=== PATIENT | female | born 1955 | race Caucasian/White ===

== ENCOUNTER 2018-08-11 06:30 | Emergency (ER) | payer OTHER ==
[2018-08-11] MEDS ORDERED: MORPHINE 4 MG/ML SYR ONE ×2 (07:12→08:23)
[2018-08-11] MEDS ORDERED: ONDANSETRON 4 MG/2 ML VIAL ONE ×3 (07:12→08:23)
[2018-08-11] MEDS ORDERED: FENTANYL CITR 100 MCG/2 ML ONE ×2 (07:24→07:33)
--- NOTE | 2018-08-11 07:58 | ER ---
Nurse's Notes [facility] Name: Marcelle Frank Age: 62 yrs Sex: Female : 1955 Arrival Date: 08/11/2018 Time: 06:35 Bed 7 Private MD: Dane Kaba Diagnosis: Right displaced humeral neck fracture Presentation: 08/11 06:35 Presenting complaint: Patient states: that she was attempting to move a small chair and fc fell. She hit her right shoulder and arm on the hard wood floor. Now unable to move shoulder without severe pain. Also having urinary frequency and is spotting blood. States she has UTI and gets them frequently. Transition of care: patient was not received from another setting of care. Onset of symptoms was August 11, 2018 at 05:30. Risk Assessment: Do you want to hurt yourself or someone else? Patient reports no desire to harm self or others. Initial Sepsis Screen: Does the patient meet any 2 criteria? No. Patient's initial sepsis screen is negative. Does the patient have a suspected source of infection? No. Patient's initial sepsis screen is negative. Care prior to arrival: None. 06:35 Method Of Arrival: Ambulatory 06:35 Acuity: JAZLYN 3 fc Historical: - Allergies: 06:52 Codeine; fc - Home Meds: 06:52 hydrocodone-acetaminophen 7.5-325 mg oral tab 1 tab every 6 hours [Active]; Valium 2 mg fc Oral tab 1 tab 2 times per day [Active]; trazodone 300 mg Oral tab 1 tab nightly [Active]; gabapentin oral oral [Active]; - PMHx: 06:52 major depression disorder; possible diabetic,; Back pain; fc - PSHx: 06:52 None; right wrist cyst removal; fc - Immunization history:: Last tetanus immunization: up to date Flu vaccine is up to date. - Social history:: Smoking status: Patient uses tobacco products, smokes one pack cigarettes per day. Patient/guardian denies using alcohol, street drugs. - Ebola Screening: : Patient negative for fever greater than or equal to 101.5 degrees Fahrenheit, and additional compatible Ebola Virus Disease symptoms Patient denies exposure to infectious person Patient denies travel to an Ebola-affected area in the 21 days before illness onset. Screenin:49 Abuse screen: Denies threats or abuse. Nutritional screening: No deficits noted. Tuberculosis screening: No symptoms or risk factors identified. Fall Risk Fall in past 12 months (25 points). No secondary diagnosis (0 pts). No IV (0 pts). Ambulatory Aid- None/Bed Rest/Nurse Assist (0 pts). Gait- Weak (10 pts.). Mental Status- Overestimates/Forgets Limitations (15 pts.). Total Jaramillo Fall Scale indicates Low Risk Score (25-44 pts). Fall prevention measures have been instituted. Side Rails Up X 2 Placed close to Nursing Station Frequent Obs/Assesments occuring Family Present and informed to notify staff if they need to leave bedside As available Patient and Family Educated on Fall Prevention Program and strategies. Assessment: 07:00 General: Appears in no apparent distress. comfortable, Behavior is calm, cooperative, rr5 appropriate for age. Pain: Complains of pain in right upper arm Pain currently is 10 out of 10 on a pain scale. Quality of pain is described as aching. 07:00 Neuro: Level of Consciousness is awake, alert, obeys commands, Oriented to person, rr5 place, time. Cardiovascular: Capillary refill < 3 seconds. Respiratory: Airway is patent Respiratory effort is even, unlabored, Respiratory pattern is regular, symmetrical. GI: No signs and/or symptoms were reported involving the gastrointestinal system. : No signs and/or symptoms were reported regarding the genitourinary system. EENT: No signs and/or symptoms were reported regarding the EENT system. Derm: No signs and/or symptoms reported regarding the dermatologic system. Musculoskeletal: Capillary refill < 3 seconds, Range of motion: intact in right arm. Vital Signs: 06:35 BP 159 / 68; Pulse 78; Resp 18; Temp 98.2(O); Pulse Ox 97% on R/A; Weight 73.48 kg (R); fc Height 5 ft. 4 in. (162.56 cm) (R); Pain 10/10; 06:35 Body Mass Index 27.81 (73.48 kg, 162.56 cm) ED Course: 06:35 Patient arrived in ED. al2 06:35 Dane Kaba MD is Private Physician. al2 06:35 Arm band placed on Patient placed in an exam room, on a stretcher. 06:39 Artemio Mensah PA is PHCP. cp 06:40 Artemio Hernandez MD is Attending Physician. cp 06:48 Triage completed. fc 06:49 Patient has correct armband on for positive identification. Bed in low position. Call light in reach. 07:00 Inserted saline lock: 22 gauge in left antecubital area, using aseptic technique. aa1 07:14 Maxine Guzman, RN is Primary Nurse. ph 07:36 X-ray completed. Portable x-ray completed in exam room. Patient tolerated procedure la2 well. 07:39 XRAY Chest (1 view) In Process Unspecified. EDMS 07:39 XRAY Humerus RIGHT In Process Unspecified. EDMS 07:39 XRAY Forearm RIGHT In Process Unspecified. EDMS 07:50 Debbie FOWLER at bedside updating pt on results at this time, pt stated understanding, sg orders received to medicate once again prior to placing shoulder immobilizer at this time. 07:54 John Rosas MD is Referral Physician. cp 08:30 No provider procedures requiring assistance completed. Patient did not have IV access sg during this emergency room visit. Administered Medications: 07:19 Drug: fentaNYL (PF) 25 mcg Route: IVP; Site: left antecubital; sg 08:00 Follow up: Response: No adverse reaction sg 07:19 Drug: Zofran 4 mg Route: IVP; Site: left antecubital; sg 08:42 Follow up: Response: No adverse reaction; Nausea is decreased sg 08:00 Drug: fentaNYL (PF) 25 mcg Route: IVP; Site: left antecubital; sg 08:41 Follow up: Response: No adverse reaction sg 08:17 Drug: TORadol 30 mg Route: IVP; Site: left antecubital; sg 08:41 Follow up: Response: No adverse reaction sg 08:17 Drug: morphine 4 mg Route: IVP; Site: left antecubital; sg 08:41 Follow up: Response: No adverse reaction; Pain is unchanged, physician notified sg 08:17 Drug: Zofran 4 mg Route: IVP; Site: left antecubital; sg 08:42 Follow up: Response: No adverse reaction; Nausea is decreased sg Outcome: 07:57 Discharge ordered by MD. cp 08:30 Discharged to home via wheelchair, with family. sg 08:30 Condition: good 08:30 Discharge instructions given to patient, family, Instructed on discharge instructions, follow up and referral plans. medication usage, safety practices, Demonstrated understanding of instructions, follow-up care, medications, Prescriptions given X 1, pt instructed to continue home medications [place], Valium and Trazodone 08:44 Patient left the ED. sg Signatures: Dispatcher [employer] EDMS Arnie Coon RN RN Sherie Solorzano RN RN aa1 Estelita Santana RN RN Maxine Guzman RN RN ph Page, Corey, PA PA cp Ardoin, Leslie la2 Yolette Oneil Raymond, RN RN rr5 Corrections: (The following items were deleted from the chart) 07:10 07:00 Pain: Complains of pain in right upper arm Pain currently is 6 out of 10 on a rr5 pain scale. Quality of pain is described as aching, rr5 08:22 07:19 Zofran 4 mg IVP in left forearm sg sg 08:22 07:19 fentaNYL (PF) 25 mcg IVP in left forearm sg sg
--- NOTE | 2018-08-11 07:59 | EDPHYS ---
Physician Documentation [facility] Name: Marcelle Frank Age: 62 yrs Sex: Female : 1955 Arrival Date: 08/11/2018 Time: 06:35 Bed 7 Private MD: Dane Kaba ED Physician Artemio Hernandez HPI: 08/11 06:46 This 62 yrs old Female presents to ER via Unassigned with complaints of Arm cp Injury. 06:46 The patient or guardian complains of decreased range of motion, injury, pain, that is cp acute. The complaints affect the right upper arm. Context: The problem was sustained at home, resulted from a fall, the patient slipped. Onset: The symptoms/episode began/occurred just prior to arrival. Treatment prior to arrival includes: no previous treatment. Associated signs and symptoms: Pertinent positives: decreased range of motion, Pertinent negatives: numbness, tingling, LOC. Historical: - Allergies: 06:52 Codeine; fc - Home Meds: 06:52 hydrocodone-acetaminophen 7.5-325 mg oral tab 1 tab every 6 hours [Active]; Valium 2 mg fc Oral tab 1 tab 2 times per day [Active]; trazodone 300 mg Oral tab 1 tab nightly [Active]; gabapentin oral oral [Active]; - PMHx: 06:52 major depression disorder; possible diabetic,; Back pain; fc - PSHx: 06:52 None; right wrist cyst removal; fc - Immunization history:: Last tetanus immunization: up to date Flu vaccine is up to date. - Social history:: Smoking status: Patient uses tobacco products, smokes one pack cigarettes per day. Patient/guardian denies using alcohol, street drugs. - Ebola Screening: : Patient negative for fever greater than or equal to 101.5 degrees Fahrenheit, and additional compatible Ebola Virus Disease symptoms Patient denies exposure to infectious person Patient denies travel to an Ebola-affected area in the 21 days before illness onset. ROS: 06:48 Eyes: Negative for injury, pain, redness, and discharge. cp 06:48 Constitutional: Negative for body aches, chills, fever, poor PO intake. 06:48 ENT: Negative for drainage from ear(s), ear pain, sore throat, difficulty swallowing, cp difficulty handling secretions. 06:48 Neck: Negative for pain with movement, pain at rest, stiffness, bony tenderness. 06:48 Cardiovascular: Negative for chest pain, edema, palpitations. 06:48 Cardiovascular: Negative for chest pain, edema, palpitations. 06:48 Respiratory: Negative for cough, shortness of breath, wheezing. 06:48 Abdomen/GI: Negative for abdominal pain, nausea, vomiting, and diarrhea, constipation. 06:48 Back: Negative for pain at rest, pain with movement. 06:48 MS/extremity: Positive for decreased range of motion, pain, tenderness, of the right upper arm. 06:48 Neuro: Negative for altered mental status, headache, loss of consciousness, syncope, weakness. 06:48 All other systems are negative. Exam: 07:00 Constitutional: The patient appears in no acute distress, alert, awake, cp non-diaphoretic, non-toxic, well developed, well nourished, uncomfortable. 07:00 Head/Face: Normocephalic, atraumatic. cp 07:00 Eyes: Periorbital structures: appear normal, Pupils: equal, round, and reactive to cp light and accomodation, Extraocular movements: intact throughout, Conjunctiva: normal, no exudate, no injection, Sclera: no appreciated abnormality, Lids and lashes: appear normal, bilaterally. 07:00 ENT: External ear(s): are unremarkable, Ear canal(s): are normal, TM's: dullness, bilaterally, Nose: is normal, Mouth: Lips: moist, Oral mucosa: pink and intact, moist, Posterior pharynx: is normal, airway is patent, no erythema, no exudate, Voice: is normal. 07:00 Neck: C-spine: vertebral tenderness, is not appreciated, crepitus, is not appreciated, ROM/movement: is normal, is supple, without pain, no range of motions limitations, no nuchal rigidity. 07:00 Chest/axilla: Inspection: normal, Palpation: is normal, no crepitus, no tenderness. 07:00 Cardiovascular: Rate: normal, Rhythm: regular, Pulses: Pulses are 2+ in right radial artery and left radial artery. JVD: is not appreciated. 07:00 Respiratory: the patient does not display signs of respiratory distress, Respirations: normal, no use of accessory muscles, no retractions, no splinting, no tachypnea, labored breathing, is not present, Breath sounds: are clear throughout, no decreased breath sounds, no stridor, no wheezing. 07:00 Abdomen/GI: Inspection: abdomen appears normal, Palpation: abdomen is soft and non-tender, in all quadrants, rebound tenderness, is not appreciated, involuntary guarding, is not appreciated. 07:00 Back: pain, is absent, ROM is normal, vertebral tenderness, is not appreciated. 07:00 Musculoskeletal/extremity: Extremities: grossly normal except: noted in the right upper arm: decreased ROM, pain, tenderness, ROM: limited passive range of motion, in the right shoulder, Perfusion: the extremity is normally perfused throughout, Sensation intact. 07:00 Skin: cellulitis, is not appreciated, no rash present. 07:00 Neuro: Orientation: to person, place \T\ time. Mentation: is normal. Vital Signs: 06:35 BP 159 / 68; Pulse 78; Resp 18; Temp 98.2(O); Pulse Ox 97% on R/A; Weight 73.48 kg (R); fc Height 5 ft. 4 in. (162.56 cm) (R); Pain 10/10; 06:35 Body Mass Index 27.81 (73.48 kg, 162.56 cm) fc Procedures: 08:00 Splinting: Splint applied to right shoulder using shoulder immobilizer. applied by cp nurse. Examined by me, post splint application: neurovascular intact, Patient tolerated well. MDM: 06:43 Patient medically screened. cp 07:55 Data reviewed: vital signs, nurses notes, radiologic studies, plain films, and as a cp result, I will discharge patient. 07:55 Differential diagnosis: dislocation, closed fracture, contusion. Test interpretation: cp by ED physician or midlevel provider: plain radiologic studies. Counseling: I had a detailed discussion with the patient and/or guardian regarding: the historical points, exam findings, and any diagnostic results supporting the discharge/admit diagnosis, radiology results, the need for outpatient follow up, a orthopedic surgeon, to return to the emergency department if symptoms worsen or persist or if there are any questions or concerns that arise at home. Response to treatment: the patient's symptoms have markedly improved after treatment, and as a result, I will discharge patient. 08/11 07:18 Order name: Urine Dipstick--Ancillary (enter results) bd 12/02 06:45 Order name: XRAY Chest (1 view) cp 08/11 06:45 Order name: XRAY Humerus RIGHT cp 08/11 06:45 Order name: XRAY Forearm RIGHT cp 08/11 06:45 Order name: IV; Complete Time: 07:00 08/11 06:46 Order name: Urine Dipstick-Ancillary (obtain specimen); Complete Time: 07:15 cp 08/11 07:42 Order name: Shoulder Immobilizer: right; Complete Time: 08:41 08/11 08:08 Order name: Ice pack; Complete Time: 08:21 suly Administered Medications: 07:19 Drug: fentaNYL (PF) 25 mcg Route: IVP; Site: left antecubital; sg 08:00 Follow up: Response: No adverse reaction sg 07:19 Drug: Zofran 4 mg Route: IVP; Site: left antecubital; sg 08:42 Follow up: Response: No adverse reaction; Nausea is decreased sg 08:00 Drug: fentaNYL (PF) 25 mcg Route: IVP; Site: left antecubital; sg 08:41 Follow up: Response: No adverse reaction sg 08:17 Drug: TORadol 30 mg Route: IVP; Site: left antecubital; sg 08:41 Follow up: Response: No adverse reaction sg 08:17 Drug: morphine 4 mg Route: IVP; Site: left antecubital; sg 08:41 Follow up: Response: No adverse reaction; Pain is unchanged, physician notified sg 08:17 Drug: Zofran 4 mg Route: IVP; Site: left antecubital; sg 08:42 Follow up: Response: No adverse reaction; Nausea is decreased sg Disposition: 08/12 06:59 Co-signature as Attending Physician, Artemio Hernandez MD I agree with the assessment and suly plan of care. Disposition: 08/11/18 07:57 Discharged to Home. Impression: Right displaced humeral neck fracture. - Condition is Stable. - Discharge Instructions: Humerus Fracture Treated With Immobilization. - Prescriptions for Ultracet 37.5- 325 mg Oral Tablet - take 1 tablet by ORAL route every 6 hours - for up to 5 days; do not exceed 8 tablets per day.; 20 tablet. - Medication Reconciliation Form, Thank You Letter, Antibiotic Education, Prescription Opioid Use form. - Follow up: John Rosas MD; When: 2 - 3 days; Reason: right humerus fracture. - Problem is new. - Symptoms have improved. Signatures: Dispatcher [employer] EDArnie Chavez RN RN sg Anderson, Corey, MD MD cha Chretien, Felicia RN RN Artemio Julian PA PA cp Corrections: (The following items were deleted from the chart) 08/11 08:44 07:57 08/11/2018 07:57 Discharged to Home. Impression: Right displaced humeral neck sg fracture. Condition is Stable. Forms are Medication Reconciliation Form, Thank You Letter, Antibiotic Education, Prescription Opioid Use. Follow up: John Rosas; When: 2 - 3 days; Reason: right humerus fracture. Problem is new. Symptoms have improved. cp
[2018-08-11] MEDS ORDERED: KETOROLAC 30 MG/ML INJ ONE (08:23)
[2018-08-11 09:08] LABS: Urine Blood NEGATIVE (NEG); Urine Glucose NEGATIVE (NEG); Urine Protein NEGATIVE (NEG); Urine pH 5.5 (5.0-7.0)
--- NOTE | 2018-08-11 11:23 | RAD REPORT ---
EXAM DESCRIPTION: RAD - Humerus Right - 08/11/2018 7:38 am CLINICAL HISTORY: Fall, shoulder pain COMPARISON: None. FINDINGS: Transverse fracture is present at the surgical neck with impaction along the medial margin . Greater tuberosity fracture is present as well. No pathologic component. There is joint laxity evid ent but no full dislocation of the humeral head identifiable. Shaft and distal humerus shows no fract ure or additional acute finding. No foreign body or other soft tissue abnormality. IMPRESSION: Impacted right humerus surgical neck fracture with nondisplaced greater tuberosity fract ure. Joint laxity is present but no full dislocation of the humeral head identified.
--- NOTE | 2018-08-11 11:23 | RAD REPORT ---
EXAM DESCRIPTION: RAD - Forearm Right - 08/11/2018 7:38 am CLINICAL HISTORY: Fall, arm pain, humerus fracture COMPARISON: None. FINDINGS: No fracture is identified. There is no dislocation or periosteal reaction noted. Minimal d egenerative change at the elbow and wrist joints. No foreign body or other soft tissue abnormality. IMPRESSION: Negative right forearm examination for acute finding.
--- NOTE | 2018-08-11 11:24 | RAD REPORT ---
EXAM DESCRIPTION: RAD - Chest Single View - 08/11/2018 7:38 am CLINICAL HISTORY: Fall, right shoulder pain COMPARISON: August 2008 TECHNIQUE: AP portable chest image was obtained 0728 hours . FINDINGS: No pneumothorax, pulmonary contusion or acute lung parenchymal process. Mild fibrotic bradford ges are similar to 2008. Heart and vasculature are normal. No measurable pleural effusion and no pneu mothorax. Right humerus fracture changes are separately detailed. No acute aortic findings suspected. IMPRESSION: No acute cardiopulmonary process. Right humerus fracture changes are separately detailed.
== END 2018-08-11 08:44 | disposition home or self-care (01) ==
LOC: ER 06:30
DX: S42.211A Unspecified displaced fracture of surgical neck of right humerus, initial encounter for closed fracture (principal); S42.254A Nondisplaced fracture of greater tuberosity of right humerus, initial encounter for closed fracture; W01.0XXA Fall on same level from slipping, tripping and stumbling without subsequent striking against object, initial encounter; Y92.009 Unspecified place in unspecified non-institutional (private) residence as the place of occurrence of the external cause; F32.9 Major depressive disorder, single episode, unspecified; F17.210 Nicotine dependence, cigarettes, uncomplicated; Z79.891 Long term (current) use of opiate analgesic; Z79.899 Other long term (current) drug therapy
CPT/HCPCS: 71045; 81003; 96374; 96375; 99284; J2405; J3010